=== PATIENT | female | born 1925 | race Caucasian/White ===

== ENCOUNTER 2016-03-15 06:53 | Outpatient (CLI) ==
[2015-11-09 10:47] VITALS: BMI 23.6
--- NOTE | 2016-03-15 08:27 | DI ---
EXAM: Lumbar spine radiographs. HISTORY: Low back pain. COMPARISON: 12/07/2014. TECHNIQUE: Three views of the lumbar spine. FINDINGS: Mild right convex midlumbar curvature noted. Alignment is normal. Anterior wedging defo rmities of T12-L1 noted which are stable. Vertebral body heights are otherwise normal. There is mi ld loss of disc height at L5-S1. Multilevel facet arthropathy noted. Extensive atherosclerotic giovany cifications are present. Since the prior study, there has been no significant interval change. IMPRESSION: 1. Stable degenerative changes. 2. Old T12-L1 compression deformities which are stable.
--- NOTE | 2016-03-16 08:26 | ECHO2D ---
Date of Exam: 03/15/16 Ordering Physician: KELLEE PENG Reason for Echo: HTN, SOB, HEART MURMUR, SURGICAL CLEARANCE Auscultation: S1, S2 Murmurs: SYSTOLIC M-Mode Normal Adult Results LV Dimensions Normal Adult Results AoV Opening excursions >1.6 1.1 LVEDD-base- 3.5-5.8 4.1 Ao root dimensions 2.0-3.7 3.2 LVESD-base- 3.1-4.6 L. Atrium dimensions 1.9-3.8 4.8 Post. Wall thickness 0.8-1.1 1.2 IV septum (thickness) 0.7-1.2 1.2 Post. Wall excursion 0.72-1.3 NORMAL Septal motion NORMAL Systolic motion R. Ventricular cavity 1.5-2.0 NORMAL LVEF 60% 58% Paradoxical septal wall motion NORMAL 2-D : CALCIFIC AORTIC STENOSIS--NORMAL LEFT VENTRICULAR CONTRACTILITY--ENLARGED LEFT ATRIAL CAVITY, NO EFFUSION, NO THROMBUS, NORMAL LEFT VENTRICLE SIZE M-MODE: MV: CALCIFIC MITRAL VALVE ANNULUS AV: CALCIFIC AORTIC STENOSIS--1.0 CM2 PLANIMETRY AREA TV: NORMAL PV: NORMAL CHAMBER SIZE: ENLARGED LEFT ATRIAL CAVITY WALL MOTION: NORMAL PERICARDIUM: NORMAL INTERPRETATION: 1. BORDERLINE LEFT VENTRICULAR HYPERTROPHY WITH ENLARGED LEFT ATRIAL CAVITY 2. NORMAL LEFT VENTRICULAR CONTRACTILITY 3. CALCIFIC AORTIC STENOSIS--PLANIMETRY AREA 1.0 CM2(moderate) RECOMMEND: COMPLETE ECHO WITH DOPPLER MTDD
== END 2016-03-15 06:54 | disposition home or self-care (01) ==
LOC: CAR 06:53
PROVIDERS: ATTEND Emergency Medicine
DX: R06.02 Shortness of breath (principal); I10 Essential (primary) hypertension; R01.1 Cardiac murmur, unspecified; M54.5 Low back pain

== ENCOUNTER 2016-04-13 10:57 | Outpatient (CLI) ==
[2015-11-09 10:47] VITALS: BMI 23.6
== END 2016-04-13 10:58 | disposition home or self-care (01) ==
LOC: AMBL 10:57
PROVIDERS: ATTEND Family Medicine
DX: N23 Unspecified renal colic (principal); R19.7 Diarrhea, unspecified; R30.0 Dysuria; N28.83 Nephroptosis; R33.9 Retention of urine, unspecified

== ENCOUNTER 2016-06-22 11:07 | Emergency (ER) ==
[2016-06-22 11:14] VITALS: TEMP 97.7; BMI 24.2
--- NOTE | 2016-06-22 12:13 | CT ---
EXAM: CT of the thoracic spine without contrast History: Trauma. Comparison: Thoracic spine CT 12/07/2014 Comparison: Lumbar spine radiograph 03/15/2016 Technique: Multiplanar CT images through the thoracic spine were obtained without the administratio n of IV contrast Findings: Atherosclerotic vascular calcifications. Coronary calcifications. Partially visualized r enal cysts. Osteopenia. No significant interval change in the chronic compression deformity at L1. There is a moderate compression fracture at T12 progressed compared to the prior lumbar spine radiograph. T8 c ompression fracture again seen with increased loss of vertebral body height now at about 75%. Spina l alignment is within normal limits. Mild to moderate multilevel degenerative disc space narrowing. Impression: 1. T12 compression fracture progressed compared to the prior study. 2. T8 compression fracture with slight interval increased loss of vertebral body height compared to the prior study.
--- NOTE | 2016-06-22 12:20 | CT ---
EXAM: Noncontrast CT of the lumbar spine HISTORY: Back pain after fall COMPARISON: 12/07/2014 CT, 03/15/2016 radiographs TECHNIQUE: Noncontrast CT of the lumbar spine FINDINGS: There is remote compression fracture of the L1 vertebral body which is stable compared to prior exam s. There is compression fracture the T12 vertebral body which has increased compared to the prior e xams. There is sclerosis of the inferior endplate of the T12 vertebral body. There is 60-70% verte bral body height loss of T12 centrally. There is approximate 2 mm of retropulsion of the inferior e ndplate of T12. No other lumbar spine fractures are identified. There is moderate severe disc height loss at L5-S1. Mild disc height loss is seen at the other lumbar levels. Extensive atheroscleroti c calcifications are present. There is mild distal abdominal aortic ectasia measuring approximately 2.8 cm. The left renal superior pole cyst is seen containing a thin calcification. T12-L1: Approximate 2 mm of retropulsion of the inferior endplate of T12. Mild right and no left fo raminal stenosis. Minimal narrowing of the the spinal canal. L1-L2: 2 mm of posterior listhesis. Mild bilateral foraminal stenosis. No spinal canal stenosis. L2-L3: Minimal diffuse disc bulge. Moderate left facet hypertrophy. Mild bilateral foraminal sten osis. No spinal canal stenosis. L3-L4: Small diffuse disc bulge. Moderate facet hypertrophy. Mild to moderate bilateral foraminal stenosis. Minimal spinal canal stenosis. L4-L5: Small diffuse disc bulge with asymmetric prominence to the right. Moderate facet hypertroph y. Mild to moderate right and moderate left foraminal stenosis. Mild spinal canal stenosis. L5-S1: Diffuse disc osteophyte complex. Moderate facet hypertrophy. Moderate to severe bilateral foraminal stenosis. No spinal canal stenosis. IMPRESSION: T12 vertebrae compression fracture, increased compared to the prior exam dated 03/15/2016 with appro ximately 60-70% height loss centrally and approximately 2 mm of posterior retropulsion of the inferi or endplate. Remote L1 interbody compression fracture. Multilevel degenerative disc disease, moderate to severe at L5-S1. No high grade spinal canal stenosis identified Multilevel foraminal stenosis as detailed above and up to moderate to severe bilaterally at L5-S1.
--- NOTE | 2016-06-22 12:21 | CT ---
EXAM: CT chest without contrast HISTORY: Back pain post fall COMPARISON: CT thoracic spine 12/07/2014 and same day thoracic spine CT. Renal ultrasound was perf ormed 01/13/2016 TECHNIQUE: Serial axial images of the chest were obtained from the lung apices to the upper abdomen without contrast. These were viewed in multiple planes. FINDINGS: The thyroid is normal. The visualized vessels demonstrates scattered atherosclerotic dis ease of the aorta which is moderate. The heart is normal in size without pericardial effusion. Ther e are no pathologically enlarged mediastinal or hilar lymph nodes. There is no pneumothorax or pleural effusion. There is minimal bibasilar fibrosis. There is a smal l ground-glass nodule measuring 0.3 cm in diameter in the left lower lobe on image 20. There is no acute consolidation, nodule or mass otherwise identified. The airways are patent. The left kidney demonstrates a heterogeneous lobular low attenuation lesion measuring [address] with thin linear internal calcifications. This was seen on prior renal ultrasound. The osseous structures demonstrate multiple compression deformities better seen on same day CT thoracic spine. There is kyphosis and T12, L1, T8 and T7 compression deformities present. No focal lytic lesion is identified. IMPRESSION: 1. Multiple thoracic and upper lumbar spine compression deformities are better identified on same d ay CT thoracic spine and lumbar spine. T12 and T8 compression deformities have mildly worsened sinc e 12/07/2014. 2. Mild bibasilar fibrosis. There is a small ground-glass nodule in the left lower lobe which is l ikely postinflammatory. 3. Lobular low attenuation lesion in the left kidney with minimal linear calcifications likely repr esenting a lobular cyst seen on prior ultrasound 01/13/2016.
[2016-06-22] MEDS ORDERED: ZOFRAN 4 MG/2 ML IM STA (12:32)
[2016-06-22] MEDS ORDERED: MORPHINE 4 MG/ML SYRINGE IM STA (12:32)
--- NOTE | 2016-06-22 12:35 | ED.PDOC ---
General ED Provider: Dr. TATIANA LINDSEY-ER Chief Complaint: Fall Stated Complaint: i fell and hurt my back Time Seen by Physician: 11:10 Mode of Arrival: Walk-In Information Source: Patient Exam Limitations: No limitations Primary Care Provider: EVARISTO LOPEZ Nursing and Triage Documentation Reviewed and Agree: Yes Musculoskeletal Complaint Exam - Back Pain Complaint/Exam Mechanism of Injury: Reports: Trauma Onset/Duration: 4 hrs Symptoms Are: Still present Timing: Constant Initial Severity: Mild Current Severity: Moderate Location: Reports: Discrete (upper back) Character: Reports: Dull, Aching, Stiffness Aggravating: Reports: Movements, Lifting, Bending, Walking Alleviating: Reports: None Associated Signs and Symptoms: Denies: Swelling, Redness, Bruising, Fever, Weakness, Numbness, Tingling, Abdominal pain, Flank pain, Bladder incontinence, Bowel incontinence, Weight loss, Pain with weight bearing TAD Risk Factors: Reports: Hypertension AAA Risk Factors: Reports: Hypertension Cauda Equina Risk Factors: Reports: None Epidural Abcess Risk Factors: Reports: None Focal Tenderness: Yes Paraspinal Muscle Tenderness: Yes Paraspinal Muscle Spasm: No Scoliosis: No Lordosis: No Kyphosis: No SLR Test: Right Negative, Left Negative Hip Motion Testing Pain: Right Negative, Left Negative Focal Weakness: Present: None Focal Sensory Loss: Present: None Gait: Present: Normal Differential Diagnoses: Fracture, Strain, Sprain Review of Systems - Review Of Systems Constitutional: Reports: No symptoms Eyes: Reports: No symptoms Ears, Nose, Mouth, Throat: Reports: No symptoms Respiratory: Reports: No symptoms Cardiac: Reports: No symptoms GI: Reports: No symptoms : Reports: No symptoms Musculoskeletal: Reports: Back pain Skin: Reports: No symptoms Neurological: Reports: No symptoms Endocrine: Reports: No symptoms Hematologic/Lymphatic: Reports: No symptoms All Other Systems: Reviewed and Negative Past Medical History - Past Medical History Previously Healthy: Yes Endocrine: Reports: Hypothyroid, Dyslipidemia Cardiovascular: Reports: CAD, Hypertension Respiratory: Reports: None Hematological: Reports: Anemia Gastrointestinal: Reports: GERD Genitourinary: Reports: Other (denies past UTIs) Neuro/Psych: Reports: None, Anxiety Musculoskeletal: Reports: Arthritis Cancer: Reports: None Last Menstrual Period: N/A Other Pertinent Past Medical History: - - Surgical History General Surgical History: Reports: Hysterectomy, Cholecystectomy, Orthopedic ( knee surg), Other (bowel surg--cataracts;-bowel surg--cataracts--) - Family History Family History: Reports: Unknown - Social History Smoking Status: Former smoker Hx Substance Use: No Alcohol Screening: Occasionally Lives: With family Physical Exam - Physical Exam Appearance: Well-appearing, No pain distress, Well-nourished Pain Distress: Moderate Eyes: RUY, EOMI, Conjunctiva clear ENT: Ears normal, Nose normal, Oropharynx normal Neck: Supple Respiratory: Airway patent, Breath sounds clear, Breath sounds equal, Respirations nonlabored Cardiovascular: RRR, Pulses normal, No rub, No murmur GI/: Soft, Nontender, No masses, Bowel sounds normal, No Organomegaly Musculoskeletal: Normal strength, ROM intact, No edema, No calf tenderness Skin: Warm, Dry, Normal color Neurological: Sensation intact, Motor intact, Reflexes intact, Cranial nerves intact, Alert, Oriented Psychiatric: Affect appropriate, Mood appropriate Interpretation - Radiology Interpretation Radiology Interpretation By: Radiologist Radiology Results: Positive Exam Interpreted: CT Scan Re-Evaluation - Re-Evaluation Time of Re-Evaluation: 12:35 Status: Improved Vital Signs Stable: Yes Pain Level: 2 Appearance: NAD Lungs: Clear Skin: Warm and Dry Neuro: Alert and Oriented X3 CV: RRR Physician Notification - Case Discussed Physician Notified: dr lopez Time of Notification: 12:20 Critical Care Note - Critical Care Note Total Time (mins): 0 Course - Course Orders, Labs, Meds: Orders Category Date Time Status Morphine Sulfate [Morphine 4 mg/ml Syringe] MEDS 06/22/16 12:32 Stat 4 mg IM ONCE STA Ondansetron HCl/Pf [Zofran 4 mg/2 ml] MEDS 06/22/16 12:32 Stat 4 mg IM ONCE STA CT CHEST W/O CONTRAST Stat RADS 06/22/16 11:[address] LUMBAR SPINE W/O CONTRAST Stat RADS 06/22/16 11:[address] THORACIC SPINE W/O CONTRAST Stat RADS 06/22/16 11:19 Completed Medications Generic Name Dose Route Start Last Admin Trade Name Freq PRN Reason Stop Dose Admin Morphine Sulfate 4 mg 06/22/16 12:32 Morphine 4 Mg/Ml Syringe IM 06/22/16 12:33 ONCE STA Ondansetron HCl 4 mg 06/22/16 12:32 Zofran 4 Mg/2 Ml IM 06/22/16 12:33 ONCE STA Vital Signs: Temp Pulse Resp BP Pulse Ox 06/22/16 11:08 97.7 F 71 16 164/85 H 96 Departure - Departure Time of Disposition: 12:36 Disposition: HOME SELF-CARE Discharge Problem: Compression fracture Instructions: Vertebral Compression Fracture (ED) Condition: Good Pt referred to PMD for follow-up: Yes Additional Instructions: increase percocet q 4hrs as needed--hyperextension brace--f/u with dr lopez Allergies/Adverse Reactions: Allergies codeine Adverse Reaction (Verified 09/22/15 11:36) iodine Adverse Reaction (Verified 09/22/15 11:36) shellfish derived Adverse Reaction (Verified 09/22/15 11:36) Home Medications: Ambulatory Orders Amlodipine Besylate 5 mg PO DAILY 01/06/14 Aspirin [Ecotrin] 81 mg PO DAILY 01/06/14 Donepezil HCl [Aricept] 10 mg PO DAILY 01/06/14 Levothyroxine Sodium [Synthroid] 100 mcg PO DAILY 01/06/14 Memantine HCl [Namenda] 10 mg PO BEDTIME 01/06/14 Simvastatin 10 mg PO QPM 01/06/14 Acetaminophen [Acetaminophen ER] 650 mg PO Q6HR 03/02/15 Calcium Carbonate [Calcium Antacid] 600 mg PO BID 03/02/15 Cholecalciferol (Vitamin D3) [Vitamin D] 1,000 mg PO DAILY 03/02/15 Ferrous Sulfate 325 mg PO BID 03/02/15 Ibandronate Sodium [Boniva] 150 mg PO DIRECTED 03/02/15 Loratadine [Claritin] 10 mg PO DAILY 03/02/15 Methylcellulose (with Sugar) [Citrucel Powder] 500 mg PO BID PRN 03/02/15 Na Phos,M-B/Na Phos,Di-Ba [Fleet Enema] 133 ml RC DIRECTED PRN 03/02/15 Omeprazole [Prilosec] 20 mg PO DAILY 03/02/15 Oxycodone-Acetaminophe 7.5-325 [Percocet 7.5-325] 1 tab PO TID PRN 03/02/15 Sodium Chloride [Saline Nasal [place]] 1 spray AZEEM Q2HR PRN 03/02/15 Tramadol HCl 50 mg PO Q8HR PRN 03/02/15 Gabapentin 300 mg PO BEDTIME 09/22/15 Lactobacillus Acidophilus [Probiotic] 1 each PO BID 09/22/15 Baclofen 10 mg PO BEDTIME 11/09/15 Hydrocortisone Acetate [Hydrocortisone] 28 gm TP PRN PRN 11/09/15 Loperamide HCl [Imodium A-D] 2 mg PO Q6H PRN 11/09/15 Lorazepam [Ativan] 0.5 mg PO BEDTIME 11/09/15 Melatonin/Pyridoxine [Melatonin 3 mg Tablet] 1 each PO BEDTIME 11/09/15 Mometasone Furoate [Nasonex] 17 gm NS BEDTIME 11/09/15 Na Phos,M-B/Na Phos,Di-Ba [Fleet Enema] 118 ml RC PRN PRN 11/09/15 Ropinirole HCl [Requip] 0.5 mg PO BEDTIME 11/09/15 Sennosides 8.6 mg PO DAILY PRN 11/09/15 Maged Mandujano [Preparation H] 1 each TP Q8H PRN 11/09/15 Bisacodyl [Laxative Suppository] 10 mg RC DIRECTED PRN 06/22/16 Calcium Carbonate [Tums] 300 mg PO DIRECTED PRN 06/22/16 Magnesium Hydroxide [Milk of Magnesia] 30 ml PO ONCE PRN 06/22/16 Polyethylene Glycol 3350 [Miralax] 17 gm PO DAILY 06/22/16 Ranitidine HCl [Acid Plug Assembler] 150 mg PO BID 06/22/16 Disposition Discussed With: Patient
[2016-06-22 13:14] VITALS: BP 173/70
== END 2016-06-22 13:14 | disposition home or self-care (01) ==
LOC: ED 11:07
DX: S22.080A Wedge compression fracture of T11-T12 vertebra, initial encounter for closed fracture (principal); S22.060A Wedge compression fracture of T7-T8 vertebra, initial encounter for closed fracture; I10 Essential (primary) hypertension; W19.XXXA Unspecified fall, initial encounter; Z79.899 Other long term (current) drug therapy
CPT/HCPCS: 96372; 99283

== ENCOUNTER 2016-07-24 09:43 | Emergency (ER) | payer OTHER ==
[2016-07-24 09:52] VITALS: BP 156/80; TEMP 98.7; BMI 24.3
[2016-07-24] MEDS ORDERED: DECADRON 4 MG/ML SDV IM STA (09:53)
[2016-07-24] MEDS ORDERED: MORPHINE 2 MG/ML SYRINGE IM STA (09:54)
[2016-07-24] MEDS ORDERED: ZOFRAN 4 MG/2 ML IM STA (09:57)
[2016-07-24] MEDS ORDERED: ZOFRAN 4 MG/2 ML ONE (09:58)
[2016-07-24 10:16] LABS: BASOPHILS % (AUTO) 0.3 % (0.0-3.0); EOSINOPHILS % (AUTO) 0.2 % (0.0-7.0); HEMATOCRIT 38.5 % (37.0-47.0); HEMOGLOBIN 12.8 g/dl (12.0-16.0); IMMATURE GRANULOCYTE % (AUTO) 0.4 % (0.0-5.0); LYMPHOCYTES # (AUTO) 0.9 K/uL (0.60-3.4); LYMPHOCYTES % (AUTO) 8.7 (10.0-50.0); MEAN CORPUSCULAR HEMOGLOBIN 29.8 pg (27.0-31.0); MEAN CORPUSCULAR HGB CONC 33.2 (31.8-35.4); MEAN CORPUSCULAR VOLUME 89.5 fl (81.0-99.0); MONOCYTES # (AUTO) 0.7 K/uL (0.4-2.0); MONOCYTES % (AUTO) 7.1 (0-10); NEUTROPHILS # (AUTO) 8.2 K/ul (2.0-6.9); NEUTROPHILS % (AUTO) 83.3; PLATELET COUNT 173 10^3/uL (140-440); WHITE BLOOD COUNT 9.81 K/ul (4.6-10.2)
[2016-07-24 10:30] LABS: ANION GAP 12.6; BUN/CREATININE RATIO 19.27; CREATININE 0.83 mg/dL (0.60-1.30); POTASSIUM 3.6 mmol/L (3.5-5.10)
--- NOTE | 2016-07-24 10:43 | CT ---
EXAM: CT cervical spine without contrast. HISTORY: Neck pain with no known injury COMPARISON: None TECHNIQUE: Serial axial images of the cervical spine were obtained from the skull base through the lung apices without contrast. These were viewed in multiple planes. FINDINGS: Vertebral bodies demonstrate no acute compression fracture or subluxation. There is narr owing and osteophyte formation from C5-C7. There is scattered moderate facet arthropathy. There is exaggerated cervical lordosis. Odontoid process is unremarkable with degenerative change at its ar ticulation with C1. C3-C4 demonstrates significant degenerative disease and facet arthropathy with moderate right neural foraminal narrowing. C4-C5 demonstrates moderate right neural foraminal narrowing due to facet art hropathy. There is moderate facet arthropathy at C5-C6 with severe right neural foraminal narrowing . The soft tissues demonstrate atherosclerotic disease of the aorta. There is a ground-glass nodule i n the anterior left upper lobe measuring 0.5 cm in diameter. There is hazy ground-glass in the righ t upper lobe seen on image 84. IMPRESSION: 1. No acute compression fracture or subluxation of the cervical spine. 2. Multilevel degenerative disease with the most pronounced level being severe right neural foramin al narrowing noted at C5-C6. 3. Right upper lobe ground-glass is new since exam 06/22/2016 with no change in appearance of anter ior left upper lobe pulmonary nodule in comparison to prior study CT chest 06/22/2016. Follow-up CT chest is recommended in 6 months.
[2016-07-24] MEDS ORDERED: DILAUDID 1 MG/ML SYRINGE IM STA ×2 (10:45→10:46)
--- NOTE | 2016-07-24 10:57 | ED.PDOC ---
General ED Provider: Dr. TATIANA LINDSEY-ER Chief Complaint: Neck Pain Non-Injury Stated Complaint: pat been lifting over 30 lbs yesterday and now my neck hurts Time Seen by Physician: 04:50 Mode of Arrival: Wheelchair Information Source: Patient, Family Exam Limitations: No limitations Primary Care Provider: EVARISTO LOPEZ Nursing and Triage Documentation Reviewed and Agree: Yes Musculoskeletal Complaint Exam - Knee Pain Complaint/Exam Mechanism of Injury: Reports: No known trauma Onset/Duration: 24hrs Symptoms Are: Still present Onset of Pain: Reports: Immediate Initial Severity: Mild Current Severity: Moderate Location: Reports: Discrete (posterior neck) Character: Reports: Dull, Aching, Spasmodic, Stiffness Alleviating: Reports: None Aggravating: Reports: Movement Associated Signs and Symptoms: Denies: Swelling, Redness, Bruising, Fever, Weakness, Numbness, Tingling Able to Bear Weight: Yes Septic Arthritis Risk Factors: Reports: None Knee Findings: Present: Tenderness, Limited range of motion Brittny Test Positive: No James Test Positive: No Limited Range of Motion: Present: Active Differential Diagnoses: Sprain, Strain Review of Systems - Review Of Systems Constitutional: Reports: No symptoms Eyes: Reports: No symptoms Ears, Nose, Mouth, Throat: Reports: No symptoms Respiratory: Reports: No symptoms Cardiac: Reports: No symptoms GI: Reports: No symptoms : Reports: No symptoms Musculoskeletal: Reports: Neck pain Skin: Reports: No symptoms Neurological: Reports: No symptoms Endocrine: Reports: No symptoms Hematologic/Lymphatic: Reports: No symptoms All Other Systems: Reviewed and Negative Past Medical History - Past Medical History Previously Healthy: Yes Endocrine: Reports: Hypothyroid, Dyslipidemia Cardiovascular: Reports: CAD, Hypertension Respiratory: Reports: None Hematological: Reports: Anemia Gastrointestinal: Reports: GERD Genitourinary: Reports: Other (denies past UTIs) Neuro/Psych: Reports: None, Anxiety Musculoskeletal: Reports: Arthritis Cancer: Reports: None Last Menstrual Period: none Other Pertinent Past Medical History: - - Surgical History General Surgical History: Reports: Hysterectomy, Cholecystectomy, Orthopedic ( knee surg), Other (bowel surg--cataracts;-bowel surg--cataracts--) - Family History Family History: Reports: Unknown - Social History Smoking Status: Former smoker Hx Substance Use: No Alcohol Screening: Occasionally Lives: With family Physical Exam - Physical Exam Appearance: Well-appearing, Well-nourished Pain Distress: Moderate Eyes: RUY, EOMI, Conjunctiva clear ENT: Ears normal, Nose normal, Oropharynx normal Respiratory: Airway patent, Breath sounds clear, Breath sounds equal, Respirations nonlabored Cardiovascular: RRR, Pulses normal, No rub, No murmur GI/: Soft Musculoskeletal: Normal strength, No edema, No calf tenderness, Limited ROM Skin: Warm, Dry, Normal color Neurological: Sensation intact, Motor intact, Reflexes intact, Cranial nerves intact, Alert, Oriented Psychiatric: Affect appropriate, Mood appropriate Interpretation - Radiology Interpretation Radiology Interpretation By: Radiologist Radiology Results: Positive Exam Interpreted: CT Scan Re-Evaluation - Re-Evaluation Time of Re-Evaluation: 11:28 Status: Improved Vital Signs Stable: Yes Pain Level: 1 Appearance: NAD Lungs: Clear Skin: Warm and Dry Neuro: Alert and Oriented X3 CV: RRR Critical Care Note - Critical Care Note Total Time (mins): 0 Course - Course Hematology/Chemistry: 07/24/16 10:05 07/24/16 10:05 Orders, Labs, Meds: Lab Review 07/24/16 10:05 WBC 9.81 RBC 4.30 Hgb 12.8 Hct 38.5 MCV 89.5 MCH 29.8 MCHC 33.2 RDW Coeff of Lana 13.4 Plt Count 173 Immature Gran % (Auto) 0.4 Neut % (Auto) 83.3 Lymph % (Auto) 8.7 L [place] % (Auto) 7.1 Eos % (Auto) 0.2 Baso % (Auto) 0.3 Immature Gran # (Auto) 0.0 Neut # 8.2 H Lymph # 0.9 [place] # 0.7 Eos # 0.0 Baso # 0.0 ESR 16 Sodium 139 Potassium 3.6 Chloride 107 Carbon Dioxide 23 Anion Gap 12.6 BUN 16 Creatinine 0.83 Estimated GFR (MDRD) 65.00 BUN/Creatinine Ratio 19.27 Glucose 199 H Calcium 9.0 Orders Category Date Time Status BMP [BASIC METABOLIC PANEL] Stat LAB 07/24/16 10:05 Completed CBC W/ AUTO DIFF Stat LAB 07/24/16 10:05 Completed ESR Stat LAB 07/24/16 10:05 Completed Dexamethasone 4 mg/ml Inj [Decadron 4 mg/ml Sdv] MEDS 07/24/16 09:53 Discontinued 4 mg IM ONCE STA Hydromorphone HCl [Dilaudid 1 mg/ml Syringe] MEDS 07/24/16 10:46 Discontinued 0.5 mg IM ONCE STA Morphine Sulfate [Morphine 2 mg/ml Syringe] MEDS 07/24/16 09:54 Discontinued 2 mg IM ONCE STA Ondansetron HCl/Pf [Zofran 4 mg/2 ml] MEDS 07/24/16 09:58 Discontinued 4 mg .ROUTE .STK-MED ONE Ondansetron HCl/Pf [Zofran 4 mg/2 ml] MEDS 07/24/16 09:57 Discontinued 4 mg IM ONCE STA CT CERVICAL SPINE W/O CONTRAST Stat RADS 07/24/16 09:53 Completed Medications Discontinued Medications Generic Name Dose Route Start Last Admin Trade Name Freq PRN Reason Stop Dose Admin Dexamethasone Sodium Phosphate 4 mg 07/24/16 09:53 07/24/16 10:02 Decadron 4 Mg/Ml Sdv IM 07/24/16 09:54 4 mg ONCE STA Administration Hydromorphone HCl 0.5 mg 07/24/16 10:46 07/24/16 10:53 Dilaudid 1 Mg/Ml Syringe IM 07/24/16 10:47 0.5 mg ONCE STA Administration Morphine Sulfate 2 mg 07/24/16 09:54 07/24/16 10:05 Morphine 2 Mg/Ml Syringe IM 07/24/16 09:55 2 mg ONCE STA Administration Ondansetron HCl 4 mg 07/24/16 09:57 07/24/16 10:06 Zofran 4 Mg/2 Ml IM 07/24/16 09:58 4 mg ONCE STA Administration Vital Signs: Temp Pulse Resp BP Pulse Ox 07/24/16 09:44 98.7 F 91 H 20 156/80 H 95 Departure - Departure Time of Disposition: 11:28 Disposition: TRANSFER SNF Discharge Problem: Neck pain Instructions: Cervical Strain (ED) Condition: Good Pt referred to PMD for follow-up: Yes Additional Instructions: norco 7.5mg q 4hrs prn pain #10--norflex 100mg q 12hrs--#14---heat alt cold--f/ u with dr lopez Allergies/Adverse Reactions: Allergies codeine Adverse Reaction (Verified 07/24/16 10:17) iodine Adverse Reaction (Verified 07/24/16 10:17) shellfish derived Adverse Reaction (Verified 07/24/16 10:17) Home Medications: Ambulatory Orders Amlodipine Besylate 5 mg PO DAILY 01/06/14 Aspirin [Ecotrin] 81 mg PO DAILY 01/06/14 Donepezil HCl [Aricept] 10 mg PO DAILY 01/06/14 Levothyroxine Sodium [Synthroid] 100 mcg PO DAILY 01/06/14 Memantine HCl [Namenda] 10 mg PO BEDTIME 01/06/14 Simvastatin 10 mg PO QPM 01/06/14 Acetaminophen [Acetaminophen ER] 650 mg PO Q6HR 03/02/15 Calcium Carbonate [Calcium Antacid] 600 mg PO BID 03/02/15 Cholecalciferol (Vitamin D3) [Vitamin D] 1,000 mg PO DAILY 03/02/15 Ferrous Sulfate 325 mg PO BID 03/02/15 Ibandronate Sodium [Boniva] 150 mg PO DIRECTED 03/02/15 Loratadine [Claritin] 10 mg PO DAILY PRN 03/02/15 Methylcellulose (with Sugar) [Citrucel Powder] 500 mg PO BID PRN 03/02/15 Na Phos,M-B/Na Phos,Di-Ba [Fleet Enema] 133 ml RC DIRECTED PRN 03/02/15 Omeprazole [Prilosec] 20 mg PO DAILY 03/02/15 Oxycodone-Acetaminophe 7.5-325 [Percocet 7.5-325] 1 tab PO TID PRN 03/02/15 Sodium Chloride [Saline Nasal [place]] 1 spray AZEEM Q2HR PRN 03/02/15 Tramadol HCl 50 mg PO Q8HR PRN 03/02/15 Gabapentin 300 mg PO BEDTIME 09/22/15 Lactobacillus Acidophilus [Probiotic] 1 each PO BID 09/22/15 Baclofen 10 mg PO BEDTIME 11/09/15 Hydrocortisone Acetate [Hydrocortisone] 28 gm TP PRN PRN 11/09/15 Loperamide HCl [Imodium A-D] 2 mg PO Q6H PRN 11/09/15 Lorazepam [Ativan] 0.5 mg PO BEDTIME 11/09/15 Melatonin/Pyridoxine [Melatonin 3 mg Tablet] 1 each PO BEDTIME 11/09/15 Mometasone Furoate [Nasonex] 17 gm NS BEDTIME 11/09/15 Na Phos,M-B/Na Phos,Di-Ba [Fleet Enema] 118 ml RC PRN PRN 11/09/15 Ropinirole HCl [Requip] 1 mg PO BEDTIME 11/09/15 Sennosides 8.6 mg PO DAILY PRN 11/09/15 Maged Mandujano [Preparation H] 1 each TP Q8H PRN 11/09/15 Bisacodyl [Laxative Suppository] 10 mg RC DIRECTED PRN 06/22/16 Calcium Carbonate [Tums] 300 mg PO DIRECTED PRN 06/22/16 Magnesium Hydroxide [Milk of Magnesia] 30 ml PO ONCE PRN 06/22/16 Polyethylene Glycol 3350 [Miralax] 17 gm PO DAILY 06/22/16 Ranitidine HCl [Acid Metal Hanging Supervisor] 150 mg PO BID 06/22/16 Disposition Discussed With: Patient, Family
[2016-07-24 11:13] LABS: ERYTHROCYTE SEDIMENTATION RATE 16 mm/hr (0-20); ESR INTERNAL QC INTERNAL QC VALID
== END 2016-07-24 11:35 ==
LOC: ED 09:43
DX: M54.2 Cervicalgia (principal); X50.0XXA Overexertion from strenuous movement or load, initial encounter
CPT/HCPCS: 36415; 80048; 85025; 85651; 96372; 99283

== ENCOUNTER 2017-06-19 06:37 | Day surgery (SDC) ==
[2017-06-19] MEDS ORDERED: LIDOCAINE 1% 20 ML MDV ID STA (07:16)
[2017-06-19] MEDS ORDERED: VERSED ONE (08:30)
[2017-06-19] MEDS ORDERED: DIPRIVAN 20 ML VIAL IVP ONE (08:30)
[2017-06-19 11:55] VITALS: BP 136/65; TEMP 98.6
--- NOTE | 2017-06-20 10:43 | OP ---
INDICATIONS FOR PROCEDURE: 89-year-old female presents for evaluation of dysphagia. She has intermittent dysphagia to liquids and solids. She has undergone passive dilation of the esophagus in the past with improvement in her symptoms. MEDICATIONS: SEE ANESTHESIA NOTES. PROCEDURE: ENDOSCOPY, ESOPHAGEAL DILATATION. REPORT: The risks, benefits, alternatives and limitations were discussed in detail with the patient. Informed consent was obtained. After adequate sedation was achieved, the video endoscope was introduced in the posterior pharynx and esophagus under direct visual guidance. I easily advanced down to the second portion of the duodenum. I then slowly withdrew. The duodenal mucosa appeared unremarkable except for in the very proximal second portion of the duodenum where there is a small AVM. This was noted on image #4. The scope was withdrawn back into the stomach. The gastric mucosa appeared unremarkable in the forward and retroflex views. The scope was retroflexed to look at the cardia and fundus which revealed what appeared to be a small hiatal hernia, perhaps 1 cm in size at most. The GE junction appeared patulent. The scope was anteflexed and withdrawn back into the esophagus. The lumen of the esophagus was a little bit tortuous and slightly spastic. The GE junction did appear again to be slightly patulent. There were no mucosal abnormalities. I advanced the scope back down the gastric lumen. I placed the guidewire and withdrew the scope. Over the guidewire, I easily advanced the #54 [place] dilator. I met no resistance. The patient tolerated the procedure well with stable vital signs and pulse oximetry throughout. IMPRESSION: 1. SUCCESSIVE PASSIVE DILATATION OF THE ESOPHAGUS 2. MILDLY TORTUOUS ESOPHAGEAL LUMEN BUT OTHERWISE UNREMARKABLE 3. SMALL DUODENAL AVM RECOMMENDATIONS: 1. I suspect she has esophageal motility disorder. 2. I have advised that she cut and chew her food well. I suggested that she eat slowly and remain in the upright position while eating. 3. Will see her back in the office as needed. CC: DR. BRONSON FAJARDO
== END 2017-06-19 09:35 | disposition home or self-care (01) ==
LOC: SURG 06:37
PROVIDERS: ATTEND Internal Medicine Gastroenterology
DX: R13.19 Other dysphagia (principal); K44.9 Diaphragmatic hernia without obstruction or gangrene; Q27.33 Arteriovenous malformation of digestive system vessel; K22.8 Other specified diseases of esophagus; K22.4 Dyskinesia of esophagus

== ENCOUNTER 2017-08-03 15:10 | Emergency (ER) | payer OTHER ==
[2017-08-03 15:22] VITALS: BP 165/79; TEMP 98.5; BMI 21.7
--- NOTE | 2017-08-03 16:26 | CT ---
EXAM: CT Abdomen without contrast. CT Pelvis without contrast. HISTORY: Constipation. COMPARISON: 09/22/2015. TECHNIQUE: Multiple axial images of the abdomen and pelvis were obtained without intravenous contras t. Images were reformatted in the sagittal and coronal plane. FINDINGS: Please note that evaluation of the abdominal and pelvic structures is limited due to lack of intravenous contrast. TAVR changes noted. No acute abnormality identified in the lung bases. Compression deformities of T1 2 and L1 are stable. Degenerative changes present in the spine. Gallbladder not seen. Hepatic cysts noted. The pancreas, spleen, adrenal glands demonstrate normal contour. Large left renal cyst with partially calcified septation is stable. There is no hydronephr osis. There is focal wall thickening of the sigmoid colon with mild adjacent inflammation which appears in setting diverticulosis. There is evidence for bowel obstruction. Urinary bladder is unremarkable. Uterus is absent. No free fluid or free air detected. Atherosclerotic calcifications present. Ther e is fusiform dilatation of the infrarenal abdominal aorta approximately 2.7 cm. IMPRESSION: Mild sigmoid diverticulitis.
--- NOTE | 2017-08-03 16:38 | CT ---
Exam: CT chest without intravenous contrast. Comparison: 06/22/2016. Reason for exam: Cough. FINDINGS: No pleural effusion, or focal consolidation. Atherosclerotic disease is seen within the a scott and distal arterial vasculature. Operative changes are seen after aortic valvuloplasty. Image interpretation is limited by the lack of intravenous contrast administration. The aorta is normal in course and caliber measuring 3.2 cm at the level of the arch. The heart is no t enlarged. Atherosclerotic disease is seen within the aorta and distal arterial vasculature. Mildly prominent appearing lymph nodes in the mediastinum measuring up to 9 mm in the short axis are incompletely evaluated without intravenous contrast administration. There is a 6 mm ground-glass nodule in the superior left lower lobe on axial image number 22. There is a 5.9 cm hypodensity with internal calcification in the superior left renal pole. Compression deformity is seen in the T1, T3, T8, T12, and L1 vertebral bodies. The compression deformities in the T1 and T3 vertebral bodies are new when compared to imaging perfor med on 06/22/2016. Impression: 1. 6 mm ground-glass nodule in the superior left lower lobe on axial image number 22. Follow-up imag ing in 3 months is recommended to document stability. 2. Compression deformities in the T1, T3, T8, T12, and L1 vertebral bodies. The T1 and T3 vertebral bodies are new when compared to imaging performed on 06/22/2016. 3. Cystic appearing structure in the left kidney with internal calcifications. Findings do not appea r significantly changed from the previous exam.
--- NOTE | 2017-08-03 17:13 | ED.PDOC ---
General ED Provider: Dr. YASMIN URBINA Chief Complaint: Abdominal Pain Stated Complaint: abdominal pain Time Seen by Physician: 15:20 (abdominal pain x 3 days worse today) Mode of Arrival: Wheelchair Information Source: Patient, Family Exam Limitations: No limitations Primary Care Provider: EVARISTO DOBSON Referred to ED by: Other (LAST MEAL THIS AM . LAST BM 1 DAYS AGO NO BLLOD OR DARK STOOLS) Nursing and Triage Documentation Reviewed and Agree: Yes (NO FEVER ) Reviewed sepsis parameters & appropriate labs ordered?: Yes (no trauma reported , no vomiting ) System Inflammatory Response Syndrome: Not Applicable Sepsis Protocol: For patient's 13 years and over: Temp is 96.8 and below OR 101 and greater Pulse >90 BPM Resp >20/minute Acutely Altered Mental Status Are patient's symptoms suggestive of a new infection, such as: -Pneumonia -Skin, Soft Tissue -Endocarditis -UTI -Bone, Joint Infection -Implantable Device -Acute Abdominal Infection -Wound Infection -Meningitis -Blood Stream Catheter Infection -Unknown GI Complaint Exam - Abdominal Pain Complaint/Exam Onset: Gradual Duration: 2 DAYS WORSE TODAY Symptoms Are: Still present Timing: Intermittent Initial Severity: Mild Current Severity: Mild Location of Pain: RLQ, LLQ Radiates To: Denies: Chest, Back, Flank, LLQ, RLQ, Inguinal Character: Reports: Aching Aggravating: Reports: None Alleviating: Reports: None Associated Signs and Symptoms: Reports: Decreased appetite. Denies: Diaphoresis , Fever, Cough, Chest pain, Dizziness, Back pain, Constipation, Blood in stool, Dysuria, Urinary frequency, Decreased urine output, Vaginal bleeding, Vaginal discharge, Nausea, Vomiting, Diarrhea, Sore throat, Decreased activity Related History: Reports: Similar episode (MORE ABDOMINAL PAIN TODAY) AAA Risk Factors: Reports: Smoking, Hypertension, Atherosclerosis Cardiac Risk Factors: Reports: Hypertension, Smoking, Elevated lipids, CAD Surgical Obstruction Risk Factors: Reports: None Related Surgical History: Reports: Cholecystectomy, Appendectomy Patient Rh Status: Unknown Abdominal Findings: Present: None (BUT TENDER ) Differential Diagnoses: Bowel Obstruction, Constipation, Diverticulitis, Renal Colic, Ureteral Stone Quality Indicators for AMI: EKG in 10min. Quality Indicators for Cardiac Chest Pain: EKG in 10min. Quality Indicator For Non-Traumatic Chest Pain/Syncope: EKG Performed Review of Systems - Review Of Systems Constitutional: Reports: No symptoms Eyes: Reports: No symptoms Ears, Nose, Mouth, Throat: Reports: No symptoms Respiratory: Reports: No symptoms Cardiac: Reports: No symptoms GI: Reports: Abdominal pain, Poor appetite : Reports: No symptoms Musculoskeletal: Reports: No symptoms Skin: Reports: No symptoms Neurological: Reports: No symptoms Endocrine: Reports: No symptoms Hematologic/Lymphatic: Reports: No symptoms All Other Systems: Reviewed and Negative Past Medical History - Past Medical History Previously Healthy: Yes Endocrine: Reports: Hypothyroid, Dyslipidemia Cardiovascular: Reports: CAD, Hypertension Respiratory: Reports: None Hematological: Reports: Anemia Gastrointestinal: Reports: GERD Genitourinary: Reports: Other (denies past UTIs) Neuro/Psych: Reports: None, Anxiety Musculoskeletal: Reports: Arthritis Cancer: Reports: None Last Menstrual Period: unknown Other Pertinent Past Medical History: - - Surgical History General Surgical History: Reports: Hysterectomy, Cholecystectomy, Orthopedic ( knee surg), Other (bowel surg--cataracts;-bowel surg--cataracts--) - Family History Family History: Reports: Unknown - Social History Smoking Status: Current every day smoker, Light tobacco smoker Hx Substance Use: No Alcohol Screening: Occasionally Physical Exam - Physical Exam Appearance: Well-appearing, No pain distress, Well-nourished Eyes: RUY, EOMI, Conjunctiva clear ENT: Ears normal, Nose normal, Oropharynx normal Respiratory: Airway patent, Breath sounds clear, Breath sounds equal, Respirations nonlabored Cardiovascular: RRR, Pulses normal, No rub, No murmur GI/: Tender (LLQ ) Musculoskeletal: Normal strength, ROM intact, No edema, No calf tenderness Skin: Warm, Dry, Normal color Neurological: Sensation intact, Motor intact, Reflexes intact, Cranial nerves intact, Alert, Oriented Psychiatric: Affect appropriate, Mood appropriate Physician Notification - Case Discussed Physician Notified: CEASAR Time of Notification: 17:18 (TRANSFER DUE TO NEW COMPRESSION FX ) Physician Notified: GUSTAVO FERNANDES Time of Notification: 17:31 (TRANSFER TO [facility]) Critical Care Note - Critical Care Note Total Time (mins): 0 Course - Course Hematology/Chemistry: 08/03/17 16:17 08/03/17 16:17 Orders, Labs, Meds: Lab Review 08/03/17 08/03/17 08/03/17 15:59 16:17 16:17 WBC 6.05 RBC 4.04 L Hgb 12.3 Hct 36.5 L MCV 90.3 MCH 30.4 MCHC 33.7 RDW Coeff of Lana 13.0 Plt Count 136 L Immature Gran % (Auto) 0.2 Neut % (Auto) 70.6 Lymph % (Auto) 20.2 [place] % (Auto) 7.8 Eos % (Auto) 0.5 Baso % (Auto) 0.7 Immature Gran # (Auto) 0.0 Neut # (Auto) 4.3 Lymph # (Auto) 1.2 [place] # (Auto) 0.5 Eos # (Auto) 0.0 Baso # (Auto) 0.0 Sodium 139 Potassium 3.9 Chloride 103 Carbon Dioxide 27 Anion Gap 12.9 BUN 17 Creatinine 1.04 Estimated GFR (MDRD) 50.00 BUN/Creatinine Ratio 16.34 Glucose 144 H Lactic Acid Calcium 9.5 Total Bilirubin 0.3 AST 15 ALT 11 L Alkaline Phosphatase 72 Total Creatine Kinase 83 Troponin I < 0.0100 Total Protein 7.0 Albumin 3.8 Globulin 3.2 Albumin/Globulin Ratio 1.19 Amylase 91 Lipase 60 Urine Color Yellow Urine Clarity Clear Urine pH 6.5 Ur Specific [place] 1.010 Urine Protein Negative Urine Glucose (UA) Negative Urine Ketones Negative Urine Blood Negative Urine Nitrite Negative Urine Bilirubin Negative Urine Urobilinogen 0.2 Ur Leukocyte Esterase Negative 08/03/17 16:17 WBC RBC Hgb Hct MCV MCH MCHC RDW Coeff of Lana Plt Count Immature Gran % (Auto) Neut % (Auto) Lymph % (Auto) [place] % (Auto) Eos % (Auto) Baso % (Auto) Immature Gran # (Auto) Neut # (Auto) Lymph # (Auto) [place] # (Auto) Eos # (Auto) Baso # (Auto) Sodium Potassium Chloride Carbon Dioxide Anion Gap BUN Creatinine Estimated GFR (MDRD) BUN/Creatinine Ratio Glucose Lactic Acid 8.6 Calcium Total Bilirubin AST ALT Alkaline Phosphatase Total Creatine Kinase Troponin I Total Protein Albumin Globulin Albumin/Globulin Ratio Amylase Lipase Urine Color Urine Clarity Urine pH Ur Specific [place] Urine Protein Urine Glucose (UA) Urine Ketones Urine Blood Urine Nitrite Urine Bilirubin Urine Urobilinogen Ur Leukocyte Esterase Orders Category Date Time Status ABG DRAW REQUEST Stat CARDIO 08/03/17 15:37 Ordered EKG-(ED ONLY) Stat CARDIO 08/03/17 15:37 Ordered ABG Stat LAB 08/03/17 15:37 Ordered AMYLASE Stat LAB 08/03/17 16:17 Completed BLOOD CULTURE (ED ONLY) Stat LAB 08/03/17 16:17 Received CBC W/ AUTO DIFF Stat LAB 08/03/17 16:17 Completed COMPREHENSIVE METABOLIC PANEL Stat LAB 08/03/17 16:17 Completed CREATINE KINASE Stat LAB 08/03/17 16:17 Completed LACTIC ACID Stat LAB 08/03/17 16:17 Completed LIPASE Stat LAB 08/03/17 16:17 Completed TROPONIN I Stat LAB 08/03/17 16:17 Completed URINALYSIS C & S IF INDICATED Stat LAB 08/03/17 15:59 Completed Ceftriaxone Sodium [Rocephin] 1 gm MEDS 08/03/17 17:21 Active 0.9 % Sodium Chloride [Sodium Chloride] [address] ABDOMEN/PELVIS WO CONTRAST Stat RADS 08/03/17 15:[address] CHEST W/O CONTRAST Stat RADS 08/03/17 15:35 Completed Medications Generic Name Dose Route Start Last Admin Trade Name Freq PRN Reason Stop Dose Admin Ceftriaxone Sodium 1 gm/ 50 mls @ 75 mls/hr 08/03/17 17:21 Sodium Chloride IV 08/03/17 18:00 ONCE STA Vital Signs: Temp Pulse Resp BP Pulse Ox 08/03/17 15:11 98.5 F 80 20 165/79 H 97 Departure - Departure Time of Disposition: 17:31 Disposition: TSF SHORT-TRM HOSP Discharge Problem: Abdominal pain, Diverticulitis Compression fx, thoracic spine Qualifiers: Encounter type: initial encounter Fracture type: closed Qualified Code(s): S22.000A - Wedge compression fracture of unspecified thoracic vertebra, initial encounter for closed fracture Instructions: Diverticulitis (ED) Condition: Good Pt referred to PMD for follow-up: Yes IPMP verified?: No Additional Instructions: Please call your Family Physician as soon as possible to schedule a follow-up appointment. Allergies/Adverse Reactions: Allergies codeine Adverse Reaction (Verified 08/03/17 15:18) iodine Adverse Reaction (Verified 08/03/17 15:18) shellfish derived Adverse Reaction (Verified 08/03/17 15:18) Home Medications: Ambulatory Orders Amlodipine Besylate 5 mg PO DAILY 01/06/14 Aspirin [Ecotrin] 81 mg PO DAILY 01/06/14 Donepezil HCl [Aricept] 10 mg PO DAILY 01/06/14 Levothyroxine Sodium [Synthroid] 100 mcg PO DAILY 01/06/14 Memantine HCl [Namenda] 10 mg PO BEDTIME 01/06/14 Simvastatin 10 mg PO QPM 01/06/14 Acetaminophen [Acetaminophen ER] 650 mg PO Q6HR PRN 03/02/15 Calcium Carbonate [Calcium Antacid] 600 mg PO BID 03/02/15 Cholecalciferol (Vitamin D3) [Vitamin D] 1,000 mg PO DAILY 03/02/15 Ferrous Sulfate 325 mg PO BID 03/02/15 Ibandronate Sodium [Boniva] 150 mg PO DIRECTED 03/02/15 Loratadine [Claritin] 10 mg PO DAILY PRN 03/02/15 Methylcellulose (with Sugar) [Citrucel Powder] 500 mg PO BID PRN 03/02/15 Oxycodone-Acetaminophe 7.5-325 [Percocet 7.5-325] 1 tab PO TID PRN 03/02/15 Sodium Chloride [Saline Nasal [place]] 1 spray AZEEM Q2HR PRN 03/02/15 Sodium Phosphate,[place]-Dibasic [Fleet Enema] 133 ml RC DIRECTED PRN 03/02/15 Tramadol HCl 50 mg PO Q8HR PRN 03/02/15 Gabapentin 300 mg PO BEDTIME 09/22/15 Lactobacillus Acidophilus [Probiotic] 1 each PO BID 09/22/15 Baclofen 10 mg PO BEDTIME 11/09/15 Hydrocortisone Acetate [Hydrocortisone] 28 gm TP PRN PRN 11/09/15 Loperamide HCl [Imodium A-D] 2 mg PO Q6H PRN 11/09/15 Lorazepam [Ativan] 0.5 mg PO BEDTIME 11/09/15 Melatonin/Pyridoxine [Melatonin 3 mg Tablet] 1 each PO BEDTIME 11/09/15 Mometasone Furoate [Nasonex] 17 gm NS BEDTIME 11/09/15 Ropinirole HCl [Requip] 1 mg PO BEDTIME 11/09/15 Sennosides 8.6 mg PO DAILY PRN 11/09/15 Sodium Phosphate,[place]-Dibasic [Fleet Enema] 118 ml RC PRN PRN 11/09/15 Witch Nazia [Preparation H] 1 each TP Q8H PRN 11/09/15 Bisacodyl [Laxative Suppository] 10 mg RC DIRECTED PRN 06/22/16 Calcium Carbonate [Tums] 300 mg PO DIRECTED PRN 06/22/16 Magnesium Hydroxide [Milk of Magnesia] 30 ml PO ONCE PRN 06/22/16 Polyethylene Glycol 3350 [Miralax] 17 gm PO DAILY 06/22/16 Ranitidine HCl [Acid Office Machine Servicer Apprentice] 150 mg PO BID 06/22/16 Acetaminophen/Diphenhydramine [Percogesic 325-12.5 mg Tablet] 1 each PO BEDTIME 06/15/17 Atorvastatin Calcium [Lipitor] 20 mg PO DAILY 06/15/17 Hydrocortisone Acetate [Anusol-Hc] 1 supp.rect RC BEDTIME 06/15/17 Losartan/Hydrochlorothiazide [Hyzaar 100-12.5 Tablet] 1 tab PO DAILY 06/15/17 Omeprazole 1 tab PO BEDTIME 06/15/17 Pantoprazole Sodium [Protonix] 40 mg PO BEDTIME 06/15/17 Disposition Discussed With: Patient
[2017-08-03] MEDS ORDERED: ROCEPHIN 1 GM in SODIUM CHLORIDE 50 ML IV STA (17:21)
[2017-08-03] MEDS ORDERED: ROCEPHIN ONE (18:01)
== END 2017-08-03 18:34 | disposition short-term general hospital (02) ==
LOC: ED 15:10
DX: S22.000A Wedge compression fracture of unspecified thoracic vertebra, initial encounter for closed fracture (principal); K57.92 Diverticulitis of intestine, part unspecified, without perforation or abscess without bleeding; R10.32 Left lower quadrant pain; R10.31 Right lower quadrant pain; I10 Essential (primary) hypertension; E78.5 Hyperlipidemia, unspecified; I25.10 Atherosclerotic heart disease of native coronary artery without angina pectoris; E03.9 Hypothyroidism, unspecified; D64.9 Anemia, unspecified; F17.210 Nicotine dependence, cigarettes, uncomplicated; Z79.899 Other long term (current) drug therapy
CPT/HCPCS: 36415; 80053; 81001; 82150; 82550; 83605; 83690; 84484; 85025; 87040; 96365; 99285

== ENCOUNTER 2017-08-08 03:50 | Emergency (ER) ==
[2017-08-08 04:06] VITALS: BP 118/69; TEMP 96.9; BMI 32.4
[2017-08-08] MEDS ORDERED: TENIVAC IM ONE (04:21)
--- NOTE | 2017-08-08 05:29 | CT ---
EXAM: CT head without contrast 08/08/2017. Sagittal and coronal reformatted images obtained HISTORY: Fall COMPARISON: None. FINDINGS: There is no evidence of intracranial hemorrhage. The midline is maintained. There is no h ydrocephalus. Generalized atrophy. Chronic small vessel ischemic changes. No cerebellar tonsillar ectopia. Evaluation of the calvarium shows no fracture. The mastoid air cells are normally pneumati zed. IMPRESSION: No acute intracranial abnormality.
--- NOTE | 2017-08-08 05:32 | CT ---
EXAM: CT cervical spine without intravenous contrast 08/08/2017. Sagittal and coronal reformatted i mages obtained HISTORY: Fall COMPARISON: 07/24/2016, 08/03/2017 FINDINGS: Partial compression fracture of T1 and T3 are stable as compared to recent CT chest 2017. The cervical vertebral bodies appear intact. The facet joints align normally. The prevertebral soft tissues appear within normal limits. There is no acute fracture or subluxation at any level Multilevel chronic degenerative disc disease. Chronic facet arthropathy. IMPRESSION: 1. No acute post traumatic osseous abnormality of the cervical spine.
--- NOTE | 2017-08-08 05:35 | DI ---
EXAM: Right fifth finger, three views, 08/08/2017 HISTORY: Fall COMPARISON: None. FINDINGS / IMPRESSION: Chronic degenerative changes throughout the visualized portion of the right h and. Superficial soft tissue injury There is no evidence of acute fracture or dislocation No acute post traumatic osseous abnormality.
--- NOTE | 2017-08-08 06:03 | ED.PDOC ---
General ED Provider: Dr. TATIANA LINDSEY-ER Chief Complaint: Multiple Trauma Stated Complaint: she fell Time Seen by Physician: 04:00 Mode of Arrival: Walk-In Information Source: Patient Exam Limitations: No limitations Primary Care Provider: EVARISTO DOBSON Nursing and Triage Documentation Reviewed and Agree: Yes Reviewed sepsis parameters & appropriate labs ordered?: Yes System Inflammatory Response Syndrome: Not Applicable Sepsis Protocol: For patient's 13 years and over: Temp is 96.8 and below OR 101 and greater Pulse >90 BPM Resp >20/minute Acutely Altered Mental Status Are patient's symptoms suggestive of a new infection, such as: -Pneumonia -Skin, Soft Tissue -Endocarditis -UTI -Bone, Joint Infection -Implantable Device -Acute Abdominal Infection -Wound Infection -Meningitis -Blood Stream Catheter Infection -Unknown Trauma/Injury Complaint Exam - Head Injury Complaint/Exam Location of Pain: Reports: Scalp Mechanism of Injury: Reports: Trauma Onset/Duration: one hour Symptoms Are: Still present Initial Severity: Mild Current Severity: Mild Character: Reports: Dull Aggravating: Reports: Unknown Alleviating: Reports: Unknown Associated Signs and Symptoms: Denies: Confusion, Memory loss, Seizure, Epistaxis, Dental malocclusion, Neck pain, Nausea, Vomiting Loss of Consciousness: None SDH Risk Factors: Present: Elderly, Recent trauma Cervical Spine Injury Risk Factors: Present: None Immobilization Removed Post Exam: No Head Injury Findings: Present: Normal findings Focal Weakness: Present: None Focal Sensory Loss: Present: None Gait: Normal Finger to Nose: Normal Rhomberg Test Positive: No Babinski Sign: Negative Right, Negative Left Heel to Toe Normal: Yes Differential Diagnoses: Trauma Review of Systems - Review Of Systems Constitutional: Reports: No symptoms Eyes: Reports: No symptoms Ears, Nose, Mouth, Throat: Reports: No symptoms Respiratory: Reports: No symptoms Cardiac: Reports: No symptoms GI: Reports: No symptoms : Reports: No symptoms Musculoskeletal: Reports: No symptoms Skin: Reports: No symptoms Neurological: Reports: No symptoms Endocrine: Reports: No symptoms Hematologic/Lymphatic: Reports: No symptoms All Other Systems: Reviewed and Negative Past Medical History - Past Medical History Previously Healthy: Yes Endocrine: Reports: Hypothyroid, Dyslipidemia Cardiovascular: Reports: CAD, Hypertension Respiratory: Reports: None Hematological: Reports: Anemia Gastrointestinal: Reports: GERD Genitourinary: Reports: Other (denies past UTIs) Neuro/Psych: Reports: None, Anxiety Musculoskeletal: Reports: Arthritis Cancer: Reports: None Last Menstrual Period: PT HAS HAD A HYSTERECTOMY Other Pertinent Past Medical History: - - Surgical History General Surgical History: Reports: Hysterectomy, Cholecystectomy, Orthopedic ( knee surg), Other (bowel surg--cataracts;-bowel surg--cataracts--) - Family History Family History: Reports: Unknown - Social History Smoking Status: Former smoker Hx Substance Use: No Alcohol Screening: None - Immunizations Tetanus Shot up to Date: (UNKNOWN) Physical Exam - Physical Exam Appearance: Well-appearing, No pain distress, Well-nourished Pain Distress: Mild Eyes: RUY, EOMI, Conjunctiva clear ENT: Ears normal, Nose normal, Oropharynx normal Neck: Supple Respiratory: Airway patent, Breath sounds clear, Breath sounds equal, Respirations nonlabored Cardiovascular: RRR, Pulses normal, No rub, No murmur GI/: Soft, Nontender, No masses, Bowel sounds normal, No Organomegaly Musculoskeletal: Normal strength, ROM intact, No edema, No calf tenderness Skin: Warm, Dry, Normal color Neurological: Sensation intact, Motor intact, Reflexes intact, Cranial nerves intact, Alert, Oriented Psychiatric: Affect appropriate, Mood appropriate Interpretation - Radiology Interpretation Radiology Interpretation By: Radiologist Radiology Results: Negative Exam Interpreted: CT Scan Critical Care Note - Critical Care Note Total Time (mins): 0 Course - Course Orders, Labs, Meds: Orders Category Date Time Status Tetanus and Diphtheria Tox/Pf [Tenivac] MEDS 08/08/17 04:21 Discontinued 0.5 ml IM .ONCE ONE CT CERVICAL SPINE W/O CONTRAST Stat RADS 08/08/17 04:[address] HEAD W/O CONTRAST Stat RADS 08/08/17 04:20 Completed FINGER(S) RIGHT MIN 2V Stat RADS 08/08/17 04:21 Completed Medications Discontinued Medications Generic Name Dose Route Start Last Admin Trade Name Freq PRN Reason Stop Dose Admin Tetanus/Diphtheria Toxoids Adsorbed 0.5 ml 08/08/17 04:21 08/08/17 05:27 Tenivac IM 08/08/17 04:22 0.5 ml .ONCE ONE Administration Vital Signs: Temp Pulse Resp BP Pulse Ox 08/08/17 03:51 96.9 F L 61 20 118/69 97 Departure - Departure Time of Disposition: 06:04 Disposition: HOME SELF-CARE Discharge Problem: Laceration of finger Head injury Qualifiers: Encounter type: initial encounter Qualified Code(s): S09.90XA - Unspecified injury of head, initial encounter Instructions: Diphtheria/Tetanus Vaccine (By injection) Condition: Good Pt referred to PMD for follow-up: Yes IPMP verified?: No Additional Instructions: keep laceration clean and dry=-=-notify pmd if any infection Allergies/Adverse Reactions: Allergies codeine Adverse Reaction (Verified 08/08/17 03:51) iodine Adverse Reaction (Verified 08/08/17 03:51) shellfish derived Adverse Reaction (Verified 08/08/17 03:51) Home Medications: Ambulatory Orders Donepezil HCl [Aricept] 10 mg PO BEDTIME 01/06/14 Memantine HCl [Namenda] 10 mg PO BEDTIME 01/06/14 Acetaminophen [Acetaminophen ER] 650 mg PO Q6HR PRN 03/02/15 Calcium Carbonate [Calcium Antacid] 600 mg PO BID 03/02/15 Cholecalciferol (Vitamin D3) [Vitamin D] 1,000 mg PO DAILY 03/02/15 Ferrous Sulfate 325 mg PO BID 03/02/15 Loratadine [Claritin] 10 mg PO DAILY PRN 03/02/15 Methylcellulose (with Sugar) [Citrucel Powder] 500 mg PO BID PRN 03/02/15 Oxycodone-Acetaminophe 7.5-325 [Percocet 7.5-325] 1 tab PO TID PRN 03/02/15 Sodium Chloride [Saline Nasal Parnell] 1 spray AZEEM Q2HR PRN 03/02/15 Sodium Phosphate,Swisher-Dibasic [Fleet Enema] 133 ml RC DIRECTED PRN 03/02/15 Gabapentin 300 mg PO BEDTIME 09/22/15 Hydrocortisone Acetate [Hydrocortisone] 28 gm TP PRN PRN 11/09/15 Loperamide HCl [Imodium A-D] 2 mg PO Q6H PRN 11/09/15 Lorazepam [Ativan] 0.5 mg PO BEDTIME 11/09/15 Melatonin/Pyridoxine [Melatonin 3 mg Tablet] 1 each PO BEDTIME 11/09/15 Ropinirole HCl [Requip] 1 mg PO BEDTIME 11/09/15 Sennosides 2 tab PO DAILY PRN 11/09/15 Witch Nazia [Preparation H] 1 each TP Q8H PRN 11/09/15 Bisacodyl [Laxative Suppository] 10 mg RC DIRECTED PRN 06/22/16 Magnesium Hydroxide [Milk of Magnesia] 30 ml PO ONCE PRN 06/22/16 Polyethylene Glycol 3350 [Miralax] 17 gm PO DAILY 06/22/16 Atorvastatin Calcium [Lipitor] 20 mg PO DAILY 06/15/17 Hydrocortisone Acetate [Anusol-Hc] 1 supp.rect RC BEDTIME 06/15/17 Pantoprazole Sodium [Protonix] 40 mg PO BEDTIME 06/15/17 Fluticasone Propionate [Flonase] 2 spray NS DAILY 08/03/17 Guaifenesin 100 mg PO Q4HR PRN 08/03/17 Hydrocortisone [Proctocort] 28.35 gm RC Q12HR 08/03/17 Levothyroxine Sodium 125 mcg PO DAILY 08/03/17 Losartan/Hydrochlorothiazide [Losartan-Hctz 50-12.5 mg Tab] 1 each PO DAILY 10/13 Maged Mandujano [Dylancks] 1 each TP Q2HR 08/03/17 Disposition Discussed With: Patient
== END 2017-08-08 09:15 | disposition home or self-care (01) ==
LOC: ED 03:50
DX: S09.90XA Unspecified injury of head, initial encounter (principal); S61.216A Laceration without foreign body of right little finger without damage to nail, initial encounter; W19.XXXA Unspecified fall, initial encounter
CPT/HCPCS: 90471; 90714; 99283